=== PATIENT | female | born 1990 | race Two or more races ===

== ENCOUNTER 2016-11-16 00:27 | Emergency (ER) | payer SELFPAY ==
[~2016-11-16] VITALS: Ht 180.3 cm; Wt 142.0 kg
--- NOTE | 2016-11-16 00:35 | NUR ---
TO BED 1 A 26 YO FEMALE BIBSELF C/O R FRONTAL HEAD ACHE, HX MIGRAINE, WITH N/V DIZZINESS. AAOX4, AMBULATORY WITH STEADY GAIT. VSS. NAD NOTED. COMFORT MEASURES RENDERED. AWAITING FOR ER MD RÍOS.
[2016-11-16] MEDS ORDERED: METOCLOPRAMIDE HCL 10 MG/2 ML VIAL ONE (00:58)
[2016-11-16] MEDS ORDERED: diphenhydrAMINE HCL 50 MG/ML VIAL ONE (00:58)
[2016-11-16] MEDS ORDERED: IV NS 0.9% 1,000 ML BAG IV ONE (01:00)
[2016-11-16] MEDS ORDERED: diphenhydrAMINE HCL 50 MG/ML VIAL IV ONE (01:00)
[2016-11-16] MEDS ORDERED: METOCLOPRAMIDE HCL 10 MG/2 ML VIAL IV ONE (01:00)
--- NOTE | 2016-11-16 01:12 | NUR ---
MEDS GIVEN ORDERED BY DR VANG.
--- NOTE | 2016-11-16 02:05 | NUR ---
IV removed. Catheter intact and site benign. Pressure and 4x4 applied to site. No bleeding noted. Patient discharged to home in stable condition. Written and verbal after care instructions given. Patient verbalizes understanding of instruction. ambulatory with a steady gait noted. pt aaox4 no acute distress noted, resp even and unlabored. advice pt not to drive or operate any machinery due to pt was given benadryl. pt verbalize understanding. pt s/o at bedside to take pt home.
[2016-11-16 02:07] VITALS: BP 132/69
== END 2016-11-16 02:08 | disposition home or self-care (01) ==
LOC: ER 00:31
DX: G43.909 Migraine, unspecified, not intractable, without status migrainosus (principal)
CPT/HCPCS: 96361; 96374; 96375; 99284; A4606; J1200; J2765; J7030; Z7610